=== PATIENT | male | born 1970 | race Caucasian/White ===

== ENCOUNTER 2023-08-10 19:01 | Emergency (ER) | payer MEDICAID ==
[~2023-08-10] VITALS: Ht 180.3 cm; Wt 82.0 kg
[2023-08-10 19:09] VITALS: O2SAT 100
[2023-08-10] MEDS: FENTANYL CITRATE/PF 50MCG/ML 2ML VIAL IV ONE ×3 (19:41→20:31)
[2023-08-10] MEDS: CEFTRIAXONE 1GM/50ML 50 ML IV ONE (19:42)
[2023-08-10] MEDS: TETANUS, DIPHTHERIA, PERTUSSIS VAC/PF 0.5ML (>10YR OLD) IM ONE (19:45)
[2023-08-10 20:34] VITALS: BP 141/72; PULSE 70; RESP 16; TEMP 99.2
== END 2023-08-10 20:47 | disposition short-term general hospital (02) ==
LOC: ER 19:01
DX: S81.802A Unspecified open wound, left lower leg, initial encounter (principal); W18.39XA Other fall on same level, initial encounter; Y93.89 Activity, other specified; Y92.89 Other specified places as the place of occurrence of the external cause; Y99.8 Other external cause status
CPT/HCPCS: 99285; 96365; 96375; 73590; 90715; 90471; 96376; J3010; J0696